=== PATIENT | female | born 2000 | race Caucasian/White ===

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

== ENCOUNTER 2024-03-23 16:40 | Emergency (ER) | payer OTHER, SELFPAY ==
[~2024-03-23] VITALS: Ht 157.5 cm; Wt 72.8 kg
[~2024-03-23 16:40] MED LIST changes: -ATOM40CA; +ATOM40CA16; +CIPR-249 PO; +PYRI1TAB5 PO
[2024-03-23] MEDS: IBUPROFEN 600MG TAB PO ONE (18:11)
[2024-03-23] MEDS ORDERED: IBUP-1022 PO (18:13)
[2024-03-23 18:20] VITALS: BP 114/55; TEMP 97.4; O2SAT 100
== END 2024-03-23 18:25 | disposition home or self-care (01) ==
LOC: M ED 16:40
DX: S90.31XA Contusion of right foot, initial encounter (principal); W20.8XXA Other cause of strike by thrown, projected or falling object, initial encounter; F12.10 Cannabis abuse, uncomplicated; Y92.009 Unspecified place in unspecified non-institutional (private) residence as the place of occurrence of the external cause; Y93.89 Activity, other specified; Y99.9 Unspecified external cause status; Z79.1 Long term (current) use of non-steroidal anti-inflammatories (NSAID)

== ENCOUNTER 2024-03-31 21:52 | Emergency (ER) | payer OTHER, SELFPAY ==
[~2024-03-31] VITALS: Ht 162.6 cm; Wt 72.5 kg
[2024-03-31 22:17] LABS: APPEARANCE, URINE HAZY (CLEAR); BACTERIA, URINE AUTO 2+ (NEGATIVE); BILIRUBIN, URINE AUTO NEGATIVE (NEGATIVE); BLOOD, URINE BLOOD 1+ (NEGATIVE); COLOR, URINE YELLOW (YELLOW); GLUCOSE, URINE (UA) AUTO NEGATIVE (NEGATIVE); KETONE, URINE AUTO NEGATIVE (NEGATIVE); LEUKOCYTE ESTERASE, URINE AUTO 3+ (NEGATIVE); NITRITE, URINE AUTO NEGATIVE (NEGATIVE); PROTEIN, URINE AUTO NEGATIVE (NEGATIVE); RBC, URINE AUTO 6 /HPF (0-3); SPECIFIC GRAVITY URINE AUTO 1.008 (1.002-1.035); SQUAMOUS EPITHELIAL CELL UR AU 2 /HPF (0-6); UROBILINOGEN, URINE AUTO 0.2 mg/dL (0.0-2.0); WBC, URINE AUTO 132 /HPF (0-3)
[2024-03-31 22:33] LABS: URINE PREG TEST NEGATIVE (NEGATIVE)
[2024-03-31] MEDS ORDERED: CEFD300C PO (22:50)
[2024-03-31] MEDS ORDERED: PHEN-372 PO (22:50)
[2024-03-31] MEDS: PHENAZOPYRIDINE 100 MG TAB PO ONE (22:53)
[2024-03-31] MEDS: CEFDINIR 300 MG CAP (OMNICEF) PO ONE (22:54)
[2024-03-31 23:11] VITALS: BP 116/64; TEMP 98.5; O2SAT 98
== END 2024-03-31 23:12 | disposition home or self-care (01) ==
LOC: M ED 21:52
DX: N39.0 Urinary tract infection, site not specified (principal); F12.10 Cannabis abuse, uncomplicated; Z79.2 Long term (current) use of antibiotics; Z79.1 Long term (current) use of non-steroidal anti-inflammatories (NSAID); Z79.899 Other long term (current) drug therapy